=== PATIENT | male | born 1965 | race Caucasian/White ===

== ENCOUNTER 2016-11-19 05:24 | Emergency (ER) | payer OTHER ==
[~2016-11-19 05:24] MED LIST: PROPARACAINE 0.5% 15 ML OPHT DROP OP ONE
[2016-11-19 05:33] VITALS: PULSE 70; RESP 18; TEMP 97.5; O2SAT 96
[2016-11-19 05:34] VITALS: BP 125/72
[2016-11-19] MEDS ORDERED: TETRACAINE 0.5% 15 ML OPHT.BTL RTEYE ONE (05:36)
[2016-11-19] MEDS ORDERED: FLUORESCEIN SODIUM 1 MG STRIP OP ONE (05:45)
[2016-11-19] MEDS ORDERED: PROPARACAINE 0.5% 15 ML OPHT DROP ONE (05:46)
--- NOTE | 2016-11-19 05:50 | EDPHY ---
H & P Stated Complaint: RIGHT EYE: LEFT CONTACT IN PM, IRRITATION,TEARING, REDNESS YEST, WORSE Time Seen by Provider: 11/19/16 05:35 HPI/ROS: HPI The patient presents with right eye pain and redness which has been present for the last 1 day after sleeping in his contacts overnight. The pain improved when he put his contact back in, however when he removed it the pain returned. He has had tearing of the eye. He does not have any changes in his vision. He does not have any photophobia.. REVIEW OF SYSTEMS Constitutional: No fever, no chills. Skin: No rashes. Neurological: No headache. PMHx: Healthy PHYSICAL General Appearance: Alert, no distress Eyes: Pupils equal and round no pallor or injection EYE EXAM Visual Acuity: noted from Nurse's notes. Pupils: equal round and reactive to light EOMI Skin: no proptosis, no periorbital erythema or swelling, no vesicles Conjunctivae: slightly injected Cornea: exam with fluoroscein shows corneal abrasions in the temporal inferior aspect of his cornea ENT, Mouth: Mucous membranes moist Respiratory: Breathing comfortably Psychiatric: Patient is oriented X 3, there is no agitation Source: Patient - Personal History Current Tetanus/Diphtheria Vaccine: Unsure - Medical/Surgical History Hx Asthma: No Hx Chronic Respiratory Disease: No Hx Diabetes: No Hx Cardiac Disease: No Hx Renal Disease: No Hx Cirrhosis: No Hx Alcoholism: No Hx HIV/AIDS: No Hx Splenectomy or Spleen Trauma: No Other PMH: DENIES - Social History Smoking Status: Never smoked Constitutional: Initial Vital Signs Temperature (C) 36.4 C 11/19/16 05:30 Heart Rate 70 11/19/16 05:30 Respiratory Rate 18 11/19/16 05:30 Blood Pressure 125/72 H 11/19/16 05:30 O2 Sat (%) 96 11/19/16 05:30 O2 Delivery Mode Room Air Allergies/Adverse Reactions: No Known Allergies Allergy (Unverified 11/19/16 05:30) Home Medications: Medication Instructions Recorded Ofloxacin 0.3% [Ocuflox 0.3%] 2 drops RTEYE QID #1 opht.btl 11/19/16 Medical Decision Making Differential Diagnosis: This is a 51-year-old man who presents with 1 day of right eye pain after prolonged contact wearing. This is associated with eye redness and tearing. He does not have changes in his vision or photophobia. Differential diagnosis includes corneal ulcer, corneal abrasion, less likely iritis. On exam, it looks as if he has a corneal abrasion. I will treat him with ofloxacin eyedrops given that he is a contact lens wearer. I have instructed him not to wear his contacts for the next 1 week. I have given him information for Ophthalmology for follow-up as needed if his symptoms do not improved. - Data Points Medications Given: Discontinued Medications Fluorescein Sodium (Skczw-N-Kveku) 1 mg OP EDNOW ONE Stop: 11/19/16 05:46 Last Admin: 11/19/16 05:53 Dose: 1 mg Ofloxacin (Ocuflox 0.3% Opht Drops Prepack) 1 btl TAKEHOME EDNOW ONE Stop: 11/19/16 06:16 Last Admin: 11/19/16 06:15 Dose: 1 btl Proparacaine HCl (Alcaine 0.5%) 1 drops OP EDNOW ONE Stop: 11/19/16 05:01 Last Admin: 11/19/16 05:30 Dose: 1 drop Tetracaine HCl (Tetracaine 0.5%) 1 drops RTEYE ONCE ONE Stop: 11/19/16 05:37 Last Admin: 11/19/16 05:50 Dose: Not Given Departure - Departure Disposition: Home, Routine, Self-Care Clinical Impression: Corneal abrasion due to contact lens Condition: Good Instructions: Corneal Abrasion (ED) Referrals: RADHA CHAND [Primary Care Provider] - As per Instructions Davion London MD [Medical Doctor] - As per Instructions Prescriptions: Ofloxacin 0.3% [Ocuflox 0.3%] 2 drops RTEYE QID #1 opht.btl
[2016-11-19] MEDS ORDERED: OFLOXACIN 0.3% SOLN PREPACK OPHT.BTL TAKEHOME ONE ×2 (06:07→06:15)
== END 2016-11-19 06:24 | disposition home or self-care (01) ==
DX: H18.821 Corneal disorder due to contact lens, right eye (principal)